=== PATIENT | male | born 1975 | race Caucasian/White ===

== ENCOUNTER 2019-03-15 15:30 | Emergency (ER) | payer OTHER ==
--- NOTE | 2019-03-15 16:10 | EDM.PDOC ---
ED HPI GENERAL MEDICAL PROBLEM - General Chief Complaint: Wound Recheck Stated Complaint: ABCESS ON THE BACK OF HEAD Time Seen by Provider: 03/15/19 16:10 Source of Information: Reports: Patient History Limitations: Reports: No Limitations - History of Present Illness INITIAL COMMENTS - FREE TEXT/NARRATIVE: pt has an area on the back of his head that is very tender. He is on bactrin but it is not improving. Onset: Gradual, Other ( lasr 4-5 days. ) Duration: Hour(s): Location: Reports: Head Associated Symptoms: Reports: No Other Symptoms - Related Data Allergies Allergy/AdvReac Type Severity Reaction Status Date / Time No Known Allergies Allergy Verified 03/15/19 16:04 Home Meds: Home Meds Cyclobenzaprine [Flexeril] 03/15/19 [History] Meloxicam 03/15/19 [History] Sertraline [Zoloft] 03/15/19 [History] Sulfamethoxazole/Trimethoprim [Bactrim Ds Tablet] 03/15/19 [History] Past Medical History - Past Surgical History GI Surgical History: Reports: Appendectomy ED ROS GENERAL - Review of Systems Review Of Systems: See Below Constitutional: Reports: Malaise, Weakness HEENT: Reports: Other (pt has a a abcess on the back of his head He is on bactrim) Respiratory: Reports: No Symptoms Cardiovascular: Reports: No Symptoms Endocrine: Reports: No Symptoms GI/Abdominal: Reports: No Symptoms : Reports: No Symptoms Musculoskeletal: Reports: No Symptoms Skin: Reports: Other ( aabcess on the back of his head. ) ED EXAM, GENERAL - Physical Exam Exam: See Below Free Text/Narrative:: pt has a lump on the back of his head. He was seen in urgent care and he was put on bactrim but it is not getting better. Exam Limited By: No Limitations General Appearance: Alert, Anxious Head: Other (pt has a inflammed luimb on the back of his head which is very tender. He is on bactrim and has taken it for 5 days with no improvement. ) Neck: Normal Inspection Respiratory/Chest: No Respiratory Distress Cardiovascular: Regular Rate, Rhythm Course - Vital Signs Last Recorded V/S: Last Vital Signs Temp 36.4 C 03/15/19 16:11 Pulse 84 03/15/19 16:11 Resp 16 03/15/19 16:11 BP 115/79 03/15/19 16:11 Pulse Ox 99 03/15/19 16:11 - Orders/Labs/Meds Meds: Medications Discontinued Medications Generic Name Dose Route Start Last Admin Trade Name Roque PRN Reason Stop Dose Admin Lidocaine HCl 20 ml 03/15/19 16:17 03/15/19 16:24 Xylocaine 1% INJECT 03/15/19 16:18 20 ml ONETIME ONE Administration - Re-Assessments/Exams Free Text/Narrative Re-Assessment/Exam: 03/15/19 16:49 The area was cleansed well and infiltrated with lidocaine. With a 11 blade the abcess was opened and a large amount of pus was expressed. This was cultured. He does have a history of MRSA. A wick was placed to encourage ongoing drainage. He will rtc here on saturday to recheck the wound and see if the wick needs to be replaced. Departure - Departure Time of Disposition: 16:45 Disposition: Home, Self-Care 01 Condition: Fair Clinical Impression: Abscess of head - Discharge Information Referrals: PCP,None [Primary Care Provider] - Forms: ED Department Discharge Care Plan Goals: rtc saturday to recheck,, wick can be pulled and if the swelling is down it can be left out, cont bactrim.
[2019-03-15] MEDS ORDERED: Lidocaine 1% 20 ML MDV INJECT ONE (16:17)
== END 2019-03-15 17:02 | disposition home or self-care (01) ==
LOC: JP.ED 15:30
DX: L02.811 Cutaneous abscess of head [any part, except face] (principal); Z79.899 Other long term (current) drug therapy
CPT/HCPCS: 10061; 87070; 87077; 87186; 87205; 99283; J2001